=== PATIENT | male | born 1945 | race Caucasian/White ===

== ENCOUNTER 2019-11-26 13:39 | Emergency (ER) | payer OTHER ==
[~2019-11-26] VITALS: Wt 113.4 kg
[~2019-11-26 13:39] MED LIST: CLARITIN10 MG PO; EPI EZ PEN1 MG/ML IM; MEDROL DOSEPAK4 MG PO
[2019-11-26] MEDS ORDERED: TOBREX OPHTH O3.5 GM T (14:38)
[2019-11-26] MEDS ORDERED: DOXYCYCLINE100 M3 PO (14:38)
== END 2019-11-26 14:54 | disposition home or self-care (01) ==
LOC: ED 13:39
DX: H01.9 Unspecified inflammation of eyelid (principal)

== ENCOUNTER 2020-06-22 16:57 | Inpatient (IN) | payer OTHER ==
[~2020-06-22] VITALS: Ht 177.8 cm; Wt 137.6 kg
[~2020-06-22 16:57] MED LIST changes: +DOXYCYCLINE100 M3 PO; +TOBREX OPHTH O3.5 GM T
[2020-06-22 17:04] VITALS: BP 129/89
[2020-06-22 17:31] LABS: HEMATOCRIT 45.4 % (42.0-52.0); MEAN CELL VOLUME 94.8 fl (80.0-94.0); MEAN CORPUSCULAR HGB 32.2 pg (27.0-31.0); MEAN CORPUSCULAR HGB CONC 33.9 g/dl (33.0-37.0); MEAN PLATELET VOLUME 10.4 fl (9.6-12.3); PLATELET COUNT AUTOMATED 196 10*3/uL (130-400); RED BLOOD COUNT 4.79 10*6/uL (4.50-5.90); RED CELL DISTRI WIDTH 12.8 % (0-14.5); WHITE BLOOD COUNT 19.2 10*3/uL (4.8-10.8)
[2020-06-22 17:42] LABS: INTERNATIONAL NORM RATIO 1.1 (2.0-3.5)
[2020-06-22 17:49] LABS: ALBUMIN 3.3 gm/dl (3.1-4.5); CREATININE 1.45 mg/dL (0.70-1.30); TOTAL PROTEIN 7.8 gm/dL (6.4-8.2)
[2020-06-22 17:50] LABS: PLATELET SUFFICIENCY NORMAL (NORMAL); TOTAL CELLS COUNTED 100 #CELLS
[2020-06-22 18:07] LABS: TROPONIN I 44.3 ng/ml (<0.045)
[2020-06-22 19:01] VITALS: BP 120/91
[2020-06-22 20:00] VITALS: BP 104/75
[2020-06-22] MEDS ORDERED: TROSPIUM CHLORI20 M1 PO (20:56)
[2020-06-22] MEDS ORDERED: ATORVASTATIN CA20 M1 PO (20:57)
[2020-06-22] MEDS ORDERED: FINASTERIDE5 M1 PO (20:57)
[2020-06-22] MEDS ORDERED: DIPROSONE 0.05%15 GM T (20:58)
[2020-06-22 22:30] LABS: BILIRUBIN Negative (Negative); BLOOD Trace-Lysed (Negative); CLARITY Clear (Clear); COLOR Dark Yellow (Yellow); GLUCOSE Negative (Negative); KETONE Trace (Negative); LEUKO ESTERASE Negative (Negative); NITRITE Negative (Negative); PH 5.5 (4.5-8.0); SPECIFIC GRAVITY >= 1.030 (1.001-1.030)
[2020-06-22 22:43] LABS: WBC 0-2 wbc/hpf (0-5)
[2020-06-23] VITALS: BP 101/66
[2020-06-23 04:00] VITALS: BP 99/68
[2020-06-23 06:43] LABS: HEMATOCRIT 42.4 % (42.0-52.0); MEAN CELL VOLUME 95.1 fl (80.0-94.0); MEAN CORPUSCULAR HGB 31.8 pg (27.0-31.0); MEAN CORPUSCULAR HGB CONC 33.5 g/dl (33.0-37.0); MEAN PLATELET VOLUME 10.5 fl (9.6-12.3); PLATELET COUNT AUTOMATED 178 10*3/uL (130-400); RED BLOOD COUNT 4.46 10*6/uL (4.50-5.90); RED CELL DISTRI WIDTH 12.8 % (0-14.5); WHITE BLOOD COUNT 15.5 10*3/uL (4.8-10.8)
[2020-06-23 06:59] LABS: ALBUMIN 2.8 gm/dl (3.1-4.5); ALKALINE PHOSPHATASE 53 U/L (45-117); BUN 26 mg/dl (7-24); CHLORIDE 103 mmol/L (98-107); CREATININE 1.09 mg/dL (0.70-1.30); FREE T4 1.22 ng/dl (0.76-1.46); POTASSIUM 3.8 mmol/L (3.5-5.1); SGOT/AST 169 IU/L (3-35); SGPT/ALT 72 U/L (12-78); SODIUM 134 mmol/L (136-145); TOTAL PROTEIN 7.2 gm/dL (6.4-8.2)
[2020-06-23 07:27] LABS: BASOPHILS 2 % (0-1); PLATELET SUFFICIENCY NORMAL (NORMAL); TOTAL CELLS COUNTED 100 #CELLS
[2020-06-23 08:00] VITALS: BP 96/65
[2020-06-23 12:00] VITALS: BP 114/66
[2020-06-23 16:04] VITALS: BP 107/68
== END 2020-06-23 19:48 | disposition short-term general hospital (02) | DRG 280 ==
LOC: ED 16:57 → ICCU 18:32 → EDHOLD 18:32 → ICCU 19:54
PROVIDERS: Internal Medicine; Physician Assistant; Social Worker Clinical; ADMIT Student in an Organized Health Care Education/Training Program; ATTEND Student in an Organized Health Care Education/Training Program
DX: I21.4 Non-ST elevation (NSTEMI) myocardial infarction (principal); N17.0 Acute kidney failure with tubular necrosis; E43 Unspecified severe protein-calorie malnutrition; I50.21 Acute systolic (congestive) heart failure; E87.1 Hypo-osmolality and hyponatremia; I23.6 Thrombosis of atrium, auricular appendage, and ventricle as current complications following acute myocardial infarction; Z68.41 Body mass index [BMI] 40.0-44.9, adult; D75.89 Other specified diseases of blood and blood-forming organs; E83.41 Hypermagnesemia; E03.9 Hypothyroidism, unspecified; M79.601 Pain in right arm; M79.602 Pain in left arm; R00.0 Tachycardia, unspecified; R20.0 Anesthesia of skin; R20.2 Paresthesia of skin; D72.825 Bandemia; D72.9 Disorder of white blood cells, unspecified; D72.810 Lymphocytopenia; D72.821 Monocytosis (symptomatic); I48.91 Unspecified atrial fibrillation; R73.9 Hyperglycemia, unspecified; M48.02 Spinal stenosis, cervical region; M47.812 Spondylosis without myelopathy or radiculopathy, cervical region; R74.01 Elevation of levels of liver transaminase levels; E66.9 Obesity, unspecified; H54.7 Unspecified visual loss; M25.511 Pain in right shoulder; G89.29 Other chronic pain; M25.521 Pain in right elbow; E78.5 Hyperlipidemia, unspecified; N40.0 Benign prostatic hyperplasia without lower urinary tract symptoms; Z79.899 Other long term (current) drug therapy; Z87.891 Personal history of nicotine dependence

== ENCOUNTER → 2020-10-10 | Outpatient (CLI) | payer OTHER ==
[~2020-10-10] MED LIST changes: +ATORVASTATIN CA20 M1 PO; +DIPROSONE 0.05%15 GM T; +FINASTERIDE5 M1 PO; +TROSPIUM CHLORI20 M1 PO
[2020-10-10 08:40] LABS: BASO % 0.5 % (0.0-1.0); EOS # 0.1 10*3/uL (0.0-0.4); EOS % 1.1 % (1.0-4.0); HEMATOCRIT 42.1 % (42.0-52.0); LYMPH # 2.4 10*3/uL (1.3-4.4); LYMPH % 31.9 % (27.0-41.0); MEAN CELL VOLUME 95.9 fl (80.0-94.0); MEAN CORPUSCULAR HGB 30.8 pg (27.0-31.0); MEAN CORPUSCULAR HGB CONC 32.1 g/dl (33.0-37.0); MEAN PLATELET VOLUME 10.1 fl (9.6-12.3); MONO # 0.6 10*3/uL (0.1-1.0); MONO % 7.8 % (3.0-9.0); NEUT # 4.4 10*3/uL (2.3-7.9); NEUT % 58.4 % (47.0-73.0); PLATELET COUNT AUTOMATED 210 10*3/uL (130-400); RED BLOOD COUNT 4.39 10*6/uL (4.50-5.90); WHITE BLOOD COUNT 7.6 10*3/uL (4.8-10.8)
[2020-10-10 08:47] LABS: BUN 29 mg/dl (7-24); CHLORIDE 110 mmol/L (98-107); CREATININE 1.29 mg/dL (0.70-1.30); POTASSIUM 4.5 mmol/L (3.5-5.1); SODIUM 136 mmol/L (136-145)
[2020-10-10 08:53] LABS: INTERNATIONAL NORM RATIO 2.3 (2.0-3.5)
== END | disposition home or self-care (01) ==
LOC: LAB 08:00
PROVIDERS: Specialist; ATTEND Internal Medicine Cardiovascular Disease
DX: I50.22 Chronic systolic (congestive) heart failure (principal); I23.6 Thrombosis of atrium, auricular appendage, and ventricle as current complications following acute myocardial infarction; Z79.01 Long term (current) use of anticoagulants

== ENCOUNTER → 2020-10-30 | Outpatient (CLI) | payer OTHER | END | disposition home or self-care (01) | LOC: CARD 09:06 | PROVIDERS: ATTEND Nurse Practitioner Family | DX: I25.5 Ischemic cardiomyopathy (principal); I50.22 Chronic systolic (congestive) heart failure; I23.6 Thrombosis of atrium, auricular appendage, and ventricle as current complications following acute myocardial infarction ==

== ENCOUNTER → 2020-12-27 | Outpatient (CLI) | payer MEDICARE | END | disposition home or self-care (01) | LOC: COVID19 15:17 | PROVIDERS: ATTEND Internal Medicine | DX: Z11.52 Encounter for screening for COVID-19 (principal) ==